=== PATIENT | female | born 1955 ===

== ENCOUNTER 2022-10-26 06:29 | Day surgery (SDC) | payer OTHER ==
[~2022-10-26] VITALS: Ht 162.6 cm; Wt 68.0 kg
[~2022-10-26 06:29] MED LIST: CARDIZEM LA240 MG PO; HORIZANT600 MG PO; TEGRETOL XR400 MG PO
== END 2022-10-26 13:30 | disposition home or self-care (01) ==
LOC: CIR.AMB 06:29
PROVIDERS: ATTEND Anesthesiology Pain Medicine
DX: G50.0 Trigeminal neuralgia (principal); I10 Essential (primary) hypertension; R00.0 Tachycardia, unspecified; Z86.16 Personal history of COVID-19; Z91.013 Allergy to seafood